=== PATIENT | male | born 1950 | race Caucasian/White ===

== ENCOUNTER → 2018-04-01 10:25 | Outpatient (POV) | payer MEDICARE, OTHER, SELFPAY | PROVIDERS: Visit Provider Dermatology | DX: Z00.00 Encounter for general adult medical examination without abnormal findings (principal) ==

== ENCOUNTER → 2018-11-16 11:27 | Outpatient (POV) | payer MEDICARE, SELFPAY | PROVIDERS: Visit Provider Dermatology | DX: Z00.00 Encounter for general adult medical examination without abnormal findings (principal) ==

== ENCOUNTER → 2021-05-24 07:54 | Outpatient (CLI) | payer MEDICARE, OTHER, SELFPAY ==
--- NOTE | 2021-05-24 08:38 | CT_ITS ---
PROCEDURE INFORMATION: Exam: CTA Angiogram of the Abdominal Aorta and Bilateral Lower Extremities (Run-off) With IV Contrast Exam date and time: 05/24/2021 8:38 AM Age: 70 years old Clinical indication: Condition or disease; Peripheral vascular disease; Additional info: Pad, abnormal casey TECHNIQUE: Imaging protocol: CT angiogram of the abdominal aorta, pelvis and bilateral lower extremities with IV iodinated contrast. 3D rendering (Not supervised by radiologist): MIP and/or 3D reconstructed images were created by the technologist. Radiation optimization: All CT scans at this facility use at least one of these dose optimization techniques: automated exposure control; mA and/or kV adjustment per patient size (includes targeted exams where dose is matched to clinical indication); or iterative reconstruction. Contrast material: ISOVUE 370; Contrast volume: 120 ml; Contrast route: INTRAVENOUS (IV); COMPARISON: No relevant prior exams. FINDINGS: Aorta: No aortic aneurysm or dissection. Celiac trunk and mesenteric arteries: Visualized portions are patent. Renal arteries: The right renal artery is occluded. Flow-limiting stenosis of the left renal artery with the lumen narrowed 50-60%. Right iliac arteries: Marked mural irregularity of the right common iliac artery. There is a stent present which is patent. Non flow-limiting plaque of the right external iliac artery. Right femoral/popliteal arteries: The right common femoral artery is irregular but patent. Marked irregularity of the superficial femoral artery with multiple flow-limiting skip lesions. The distal SFA is occluded. Right infrapopliteal arteries: Marked flow-limiting mural calcification of the right trifurcation vessels. The anterior tibial artery is occluded. Left iliac arteries: Marked mural irregularity of the left common iliac artery. Flow-limiting stenosis in the distal portion with the lumen narrowed by 50-60%. The external iliac artery demonstrates a stenosis in the midportion with the lumen narrowed by 60-70%. Left femoral/popliteal arteries: The left common femoral artery is patent. The proximal and mid left superficial femoral artery is occluded. Reconstitution of the distal SFA which is highly irregular with multiple flow-limiting skip lesions. The popliteal artery is obscured. Left infrapopliteal arteries: Marked mural calcification of the left trifurcation vessels. Liver: No mass. Gallbladder and bile ducts: Unremarkable. No calcified stones. No ductal dilation. Pancreas: Unremarkable. No mass. No ductal dilation. Spleen: Normal. No splenomegaly. Adrenals: Normal. No mass. Kidneys and ureters: 6 cm simple right renal cortical cyst. The right kidney is atrophic as compared to the left. Stomach and bowel: Unremarkable. No obstruction. No mucosal thickening. Appendix: No evidence of appendicitis. Bladder: Unremarkable. No mass. Reproductive: Unremarkable as visualized. Intraperitoneal space: Unremarkable. No free air. No significant fluid collection. Lymph nodes: No lymphadenopathy. Bones/joints: No acute fracture. No dislocation. Soft tissues: Unremarkable. IMPRESSION: 1. Stent in the RIGHT common iliac artery which is patent. 2. Marked irregularity of the RIGHT superficial femoral artery with multiple flow-limiting skip lesions. 3. Occlusion of the distal RIGHT superficial femoral artery with reconstitution of the distal popliteal. 4. Flow-limiting stenosis in the distal LEFT common iliac artery with the lumen narrowed by 50-60%. 5. Flow-limiting stenosis of the LEFT external iliac artery with the lumen narrowed by 60-70%. 6. Long segment
[2021-05-24 09:06] LABS: Blood Urea Nitrogen 11 mg/dl (9-20); Estimated Glomerular Filt Rate 18 ml/min (>60); GFR (African American) 22 ML/MIN (>60)
== END ==
PROVIDERS: Internal Medicine; PCP Emergency Medicine; Visit Provider Nurse Practitioner Family
DX: I10 Essential (primary) hypertension (principal); I48.92 Unspecified atrial flutter; I73.9 Peripheral vascular disease, unspecified; L97.329 Non-pressure chronic ulcer of left ankle with unspecified severity; R00.0 Tachycardia, unspecified; R60.9 Edema, unspecified; R68.89 Other general symptoms and signs; R94.31 Abnormal electrocardiogram [ECG] [EKG]; Z95.828 Presence of other vascular implants and grafts
CPT/HCPCS: 36415; 75635; 82565; 84520; 93306; Q9967

== ENCOUNTER 2021-06-05 09:19 | Day surgery (SDC) | payer MEDICARE, OTHER, SELFPAY ==
[2021-06-05] VITALS (12 sets, daily range): BP systolic 129–174; BP diastolic 48–99; PULSE 67–78; RESP 16–18; TEMP 36.6; O2SAT 96–100; BMI 26.3
--- NOTE | 2021-06-05 | IR_ITS ---
APPROVED REPORT Patient Location: Outpatient Complaint Evaluation Officer: CLAIRE Gaines RT (R) PROCEDURES Left heart catheterization Left ventriculogram Selective coronary angiogram Catheter placed in the abdominal aorta Abdominal aortography Repositioning the catheter abdominal Bilateral iliofemoral INDICATION Systolic congestive heart failure ejection fraction 20%, End-stage dialysis with endorgan disease suspect multivessel coronary disease/ischemic cardiomyopathy, Known peripheral artery disease with history of femoropopliteal surgery, Poorly healing lower extremity ulcers, Wright claudication class V Informed consent was obtained prior to the procedure. COMPLICATIONS NONE Estimated Blood Loss: LESS THAN 10 ML TECHNIQUE One percent lidocaine used to anesthetize the right anterior aspect of the wrist. The right radial artery was accessed via the Seldinger technique. A 6 Greek sheath was placed in the right radial artery. 2.5 mg of verapamil, 800 mcg of nitroglycerin, 1mg Lidocaine and 5000 U Heparin were given through the arterial sheath. The Poppa 1 catheter was also used to perform left heart catheterization, left ventriculogram and selective coronary angiogram. At the end the diagnostic angiogram the PV multi curve catheter was placed into the distal abdominal aorta abdominal aortography was performed. Catheters and reposition bilateral iliofemoral runoff was performed. At the end the procedure the apparatus is moved the sheath was removed and hemostasis was achieved using TR banding patient was transferred to the postop already in stable condition ANGIOGRAPHIC RESULTS The left main artery Normal The left anterior descending artery Normal The circumflex artery Dominant normal The right coronary artery Normal The MEZA ventriculogram reveals Severely dilated and severely reduced ejection fraction of 20% The left ventricular end-diastolic pressure Severely elevated at 40 mmHg Abdominal aorta is calcified moderate to severely atheromatous with no focal stenosis greater than 20% Bilateral common iliac arteries are calcified atheromatous but patent with no stenosis greater than 30% Bilateral external iliac arteries are calcified atheromatous but patent with no stenosis greater than 30% Bilateral common femoral arteries are widely patent Bilateral profunda femoris arteries are patent and supply distal collateralization to the popliteal artery The bilateral superficial femoral arteries are ostially proximally and distally occluded Bilateral popliteal arteries are patent and fills via collaterals from the profunda femoris arteries Right leg has single-vessel runoff below the knee from the anterior tibialis artery where the posterior tibialis artery and peroneal arteries are occluded Left leg has single-vessel runoff from the posterior tibialis artery into the left foot. The anterior tibialis artery and peroneal arteries are both occluded. The left femoropopliteal and pop distal AT is thrombosed and occluded IMPRESSION Normal coronary arteries as described above Severely reduced ejection fraction with severe left ventricular dilatation accompanied by severely elevated LVEDP Peripheral artery disease as described above PLAN 1. Medical managemen for the coronary artery disease 2. Standard therapy for systolic heart failure 3. Consideration for [employer] D/P depending on which patient would be candidate for 4. Patient requires additional diuresis in order to decrease LVEDP 5. Medical management for peripheral artery disease 6. Aggressive risk factor modification Electronically signed by : Alex Rudolph MD 06/05/2021 13:40:32
== END 2021-06-05 16:30 | disposition home health service (06) ==
LOC: CATHLAB 09:21
PROVIDERS: PCP Emergency Medicine; Visit Provider Internal Medicine
DX: I13.2 Hypertensive heart and chronic kidney disease with heart failure and with stage 5 chronic kidney disease, or end stage renal disease (principal); I48.92 Unspecified atrial flutter; I50.21 Acute systolic (congestive) heart failure; I70.243 Atherosclerosis of native arteries of left leg with ulceration of ankle; L97.329 Non-pressure chronic ulcer of left ankle with unspecified severity; N18.6 End stage renal disease; R00.0 Tachycardia, unspecified; R06.00 Dyspnea, unspecified; R60.9 Edema, unspecified; R94.31 Abnormal electrocardiogram [ECG] [EKG]; Z95.828 Presence of other vascular implants and grafts; I25.5 Ischemic cardiomyopathy; I77.1 Stricture of artery
CPT/HCPCS: 36247; 75625; 75716; 93458; 99152; 99153; C1725; C1769; J1644; Q9966

== ENCOUNTER → 2021-07-02 13:27 | Outpatient (POV) | payer MEDICARE, SELFPAY | PROVIDERS: Visit Provider Dermatology | DX: Z00.00 Encounter for general adult medical examination without abnormal findings (principal) ==

== ENCOUNTER 2021-07-31 05:52 | Emergency (ER) | payer MEDICARE, OTHER, SELFPAY ==
[2021-07-31 05:51] VITALS: BP 154/74; PULSE 52; RESP 18; TEMP 36.8; O2SAT 96; BMI 24.7
--- NOTE | 2021-07-31 05:55 | ECG_ITS ---
APPROVED REPORT Exam: Resting ECG HR:50 bpm ECG Measurements Heart Rate 50 AXES OK 174 P 49 QRSd 114 QRS 22 QT 452 T 174 QTc [address] & T wave abnormality, consider inferolateral ischemia Abnormal ECG Electronically signed by : Kobe Hess MD 08/02/2021 14:33:10
--- NOTE | 2021-07-31 06:12 | XR_ITS ---
PROCEDURE INFORMATION: Exam: XR Chest Exam date and time: 07/31/2021 6:12 AM Age: 70 years old Clinical indication: Shortness of breath; Prior surgery; Additional info: SOA TECHNIQUE: Imaging protocol: XR of the chest. Views: 1 view. COMPARISON: CT ANGIO ABDOMEN/FEMORAL 05/24/2021 9:48 AM FINDINGS: Tubes, catheters and devices: Left central line with tip in the SVC/right atrium. Lungs: Possible vague bilateral lower lung infiltrates. Pleural spaces: Unremarkable. No pleural effusion. No pneumothorax. Heart/Mediastinum: Borderline heart size and vascularity. Bones/joints: Unremarkable. IMPRESSION: 1. Left central line. 2. Borderline heart size and vascularity. 3. Possible vague bilateral lower lung infiltrates. The
--- NOTE | 2021-07-31 06:20 | HMH.EDSOB ---
ED Disposition Clinical Impression: ESRD (end stage renal disease) Dyspnea Qualifiers: Dyspnea type: unspecified Qualified Code(s): R06.00 - Dyspnea, unspecified Disposition: Home, Self-Care Condition on Discharge: Good Instructions: DI for Shortness of Breath Additional Instructions: resume meds and dialysis Referrals: Deejay Velazquez MD [Primary Care Provider] - - Critical Care Critical Care Time: No Attestation: On 07/31/21, the high probability of a clinically significant, sudden or life threatening deterioration of the following system(s) required my full and direct attention, intervention and personal management. The time I documented below is in addition to time spent performing reported procedures but includes the following listed in this critical care notation. Medical Decision Making - Medical Records Medical records reviewed: Yes: I reviewed the patient's medical records. - Morgan Inquiry Pt receiving controlled substance: No Vital Signs: 07/31/21 05:51 07/31/21 07:00 07/31/21 07:30 Temperature 98.2 F Temperature Source Oral Pulse Rate 55 L 58 L Pulse Rate [Right Radial] 52 L Respiratory Rate 18 15 12 Blood Pressure 145/67 H 148/61 H Blood Pressure [Right Arm] 154/74 H Blood Pressure Mean 101 95 Blood Pressure Mean [Right Arm] 100 Blood Pressure Source [Right Arm] Automatic Cuff Blood Pressure Position [Right Arm] Supine 02 Sat by Pulse Oximetry 96 100 98 Oxygen Delivery Method Nasal Cannula - Lab Data Lab results reviewed: Yes: I reviewed the patient's lab results. Lab Results 07/31/21 06:00: WBC 5.5, RBC 3.69 L, Hgb 10.0 L, Hct 33.1 L, MCV 89.5, MCH 27.2, MCHC 30.4 L, RDW 18.8 H, Plt Count 173, MPV 9.7, Neut % (Auto) 79.6, Lymph % (Auto) 13.7, Hartley % (Auto) 5.5, Eos % (Auto) 0.6, Baso % (Auto) 0.5, Neut # (Auto) 4.4, Lymph # (Auto) 0.8, Hartley # (Auto) 0.3, Eos # (Auto) 0.0, Baso # (Auto) 0.0 07/31/21 06:00: Sodium 136, Potassium 3.4 L, Chloride 98, Carbon Dioxide 35 H, Anion Gap 6.4, BUN 32 H, Creatinine 3.50 H, Estimated Creat Clear 21, Estimated GFR 17 L*, Est GFR ( Amer) 21 L, Glucose 78, Calcium 7.9 L, Total Bilirubin 0.4, Direct Bilirubin 0.4, Conjugated Bilirubin 0.0, Indirect Bilirubin 0.0, Unconjugated Bilirubin 0.1, AST 33, ALT 21, Alkaline Phosphatase 271 H, Troponin I 0.02, C-Reactive Protein 61.1 H, Total Protein 4.6 L, Albumin 2.4 L, Procalcitonin 1.08 Result diagrams: 07/31/21 06:00 07/31/21 06:00 Orders (Tests/Meds): ED MEDICATIONS Discontinued Medications Generic Name Dose Route Start Last Admin Trade Name Freq PRN Reason Stop Dose Admin Acetaminophen 650 mg 07/31/21 06:45 07/31/21 06:59 Acetaminophen 325mg Tab PO 07/31/21 06:46 650 mg ONCE ONE Administration ORDERS Category Date Time Status Chest XR -- portable [XR chest portable] Stat Exams 07/31/21 06:12 Taken Complete Blood Count Auto Diff Stat Lab 07/31/21 06:00 Results Erythrocyte Sedimentation Rate Stat Lab 07/31/21 06:00 Results Troponin I Q3H Lab 07/31/21 09:15 Ordered Troponin I Q3H Lab 07/31/21 12:15 Ordered - Radiology Data #1 Image(s): Chest Image Reviewed: Yes I reviewed the patient's radiology image Preliminary Findings: Abnormal (has prob chronic changes on rt ) - ECG Data Tracing #1 Arrhythmias present: sinus jericho Ischemic changes: non-specific ST-T wave changes Medical Decision Narrative: remained stable in ed and stable chronic labs - will send back to ed to do dialysis today Resp/SOB HPI - General Chief Complaint: Shortness of Breath/Dyspnea Stated Complaint: soa Time Seen by Provider: 07/31/21 06:05 Mode of Arrival: EMS Source of Information: Patient, EMS, Medical Record Limitations: No Limitations Description of Symptoms (Recalled from ER Triage Doc. by RN): Pt sent over from [place] for c/o SOA. Pt reports waking up at aprox 0430 and feeling SOA. He describes it as fullness in my lungs . Pt is a
[2021-07-31 06:23] LABS: Alanine Aminotransferase 21 U/L (12-78); Albumin Level 2.4 g/dl (3.5-5.0); Alkaline Phosphatase 271 U/L (38-126); Anion Gap 6.4 mEq/L (5-15); Aspartate Amino Transferase 33 U/L (17-59); Basophils % 0.5 % (0.1-2.0); Bilirubin,Direct 0.4 mg/dl (0.0-0.4); Bilirubin,Total 0.4 mg/dl (0.2-1.3); Bilirubin,Unconjugated 0.1 mg/dL (0.0-1.1); Blood Urea Nitrogen 32 mg/dl (9-20); Calcium 7.9 mg/dl (8.4-10.2); Carbon Dioxide 35 mmol/L (22.0-30.0); Chloride 98 mmol/L (98-107); Creatinine Clearance Estimated 21 mL/min (50-200); Eosinophils % 0.6 % (0.1-12.0); Estimated Glomerular Filt Rate 17 ml/min (>60); GFR (African American) 21 ML/MIN (>60); Glucose 78 mg/dl (74-100); Hematocrit 33.1 % (42.0-52.0); Lymphocytes # 0.8 K/mm3 (0.7-4.5); Lymphocytes % 13.7 % (10-50); Mean Corpuscular HGB Conc 30.4 g/dL (31.8-35.4); Mean Corpuscular Hemoglobin 27.2 pg (27.0-31.2); Mean Corpuscular Volume 89.5 fl (80-94); Mean Platelet Volume 9.7 fl (7.4-10.4); Monocytes # 0.3 K/mm3 (0.1-1.0); Monocytes % 5.5 % (1.7-9.3); Neutrophils # 4.4 K/mm3 (1.8-7.8); Neutrophils % 79.6 % (37.0-80.0); Platelet Count 173 K/mm3 (142-424); Potassium 3.4 mmoL/L (3.5-5.1); Red Blood Count 3.69 M/mm3 (4.60-6.20); Red Cell Distribution Width 18.8 % (11.5-17.5); Sodium 136 mmol/L (136-145); Total Protein,Serum 4.6 g/dl (6.3-8.2); White Blood Count 5.5 K/mm3 (4.8-10.8)
[2021-07-31 06:29] LABS: C-Reactive Protein 61.1 mg/L (0-4)
[2021-07-31 06:37] LABS: Troponin I 0.02 ng/ml (0.00-0.034)
[2021-07-31 06:42] LABS: Procalcitonin 1.08 ng/mL (0.0-2.0)
[2021-07-31 07:00] VITALS: BP 145/67; PULSE 55; RESP 15; O2SAT 100
[2021-07-31 07:30] VITALS: BP 148/61; PULSE 58; RESP 12; O2SAT 98
--- NOTE | 2021-07-31 08:09 | PC.NURSE ---
Called and spoke with Hernandez and advised pt was ready for discharge so he could go to dialysis. Advised someone would be up to get patient.
[2021-07-31 08:10] VITALS: BP 142/60; PULSE 50; RESP 16; TEMP 36.8; O2SAT 98
[2021-07-31 08:15] LABS: Erythrocyte Sedimentation Rate 19 mm/hr (0-20)
== END 2021-07-31 08:15 | disposition home or self-care (01) ==
PROVIDERS: Emergency Provider Emergency Medicine; PCP Emergency Medicine
DX: I50.20 Unspecified systolic (congestive) heart failure (principal); N18.6 End stage renal disease; I48.0 Paroxysmal atrial fibrillation; I10 Essential (primary) hypertension; E78.5 Hyperlipidemia, unspecified; Z99.81 Dependence on supplemental oxygen; Z79.899 Other long term (current) drug therapy
CPT/HCPCS: 71045; 80048; 80076; 84145; 84484; 85025; 85651; 86140; 93005; 99284

== ENCOUNTER 2021-09-01 15:15 | Observation (INO) | payer MEDICARE, OTHER, SELFPAY ==
[2021-09-01] VITALS (15 sets, daily range): BP systolic 71–132; BP diastolic 40–81; PULSE 53–78; RESP 11–20; TEMP 36.7–36.9; O2SAT 81–99; BMI 22.4; BMI 22.3
--- NOTE | 2021-09-01 15:10 | ECG_ITS ---
APPROVED REPORT Exam: Resting ECG HR:114 bpm ECG Measurements Heart Rate 114 AXES QRSd 43 QRS 219 QT 302 T 214 QTc 370 Conclusion SUPRAVENTRICULAR TACHYCARDIA RIGHT AXIS DEVIATION [QRS AXIS > 100] LOW QRS VOLTAGE IN EXTREMITY LEADS [QRS DEFLECTION < 0.5 mV IN LIMB LEADS] POSSIBLE ANTERIOR MYOCARDIAL INFARCTION , OF INDETERMINATE AGE [30 ms Q WAVE IN V3/V4, OR R < 0.2 mV IN V4] MARKED ST ELEVATION, CONSIDER INFERIOR INJURY [MARKED ST ELEVATION W/O NORMALLY INFLECTED T-WAVE IN II/aVF] ACUTE ME UNCONFIRMED REPORT Electronically signed by : Kobe Hess MD 09/02/2021 20:35:57
--- NOTE | 2021-09-01 15:16 | HMH.EDGENADL ---
ED Disposition Clinical Impression: COVID-19 virus infection, Hypokalemia, Hypoglycemia Pneumonia Qualifiers: Pneumonia type: due to unspecified organism Laterality: bilateral Lung location: lower lobe of lung Qualified Code(s): J18.9 - Pneumonia, unspecified organism Sepsis Qualifiers: Sepsis type: sepsis due to unspecified organism Sepsis acute organ dysfunction status: without acute organ dysfunction Qualified Code(s): A41.9 - Sepsis, unspecified organism Disposition: Admitted as Observation Condition on Discharge: [facility] - Critical Care Critical Care Time: No Attestation: On , the high probability of a clinically significant, sudden or life threatening deterioration of the following system(s) required my full and direct attention, intervention and personal management. The time I documented below is in addition to time spent performing reported procedures but includes the following listed in this critical care notation. Medical Decision Making - Morgan Inquiry Pt receiving controlled substance: No Vital Signs: 09/01/21 15:16 09/01/21 16:03 09/01/21 16:04 Temperature 98.4 F Temperature Source Oral Pulse Rate Pulse Rate [Left Radial] 64 Respiratory Rate 20 20 20 Blood Pressure 71/46 L 76/43 L Blood Pressure [Right Arm] 132/45 L Blood Pressure Mean Blood Pressure Mean [Right Arm] 74 02 Sat by Pulse Oximetry 95 Oxygen Delivery Method Nasal Cannula Oxygen Flow Rate (LPM) 6 09/01/21 16:11 09/01/21 16:12 09/01/21 16:18 Temperature Temperature Source Pulse Rate 78 56 L 57 L Pulse Rate [Left Radial] Respiratory Rate 15 20 15 Blood Pressure 80/40 L 78/48 L 79/52 L Blood Pressure [Right Arm] Blood Pressure Mean Blood Pressure Mean [Right Arm] 02 Sat by Pulse Oximetry 86 L 90 L 98 Oxygen Delivery Method Oxygen Flow Rate (LPM) 09/01/21 16:22 09/01/21 16:27 09/01/21 16:31 Temperature Temperature Source Pulse Rate 53 L 59 L 57 L Pulse Rate [Left Radial] Respiratory Rate 15 15 11 L Blood Pressure 110/81 103/62 L 112/50 L Blood Pressure [Right Arm] Blood Pressure Mean Blood Pressure Mean [Right Arm] 02 Sat by Pulse Oximetry 87 L 81 L 86 L Oxygen Delivery Method Oxygen Flow Rate (LPM) 09/01/21 17:22 09/01/21 17:30 09/01/21 18:00 Temperature Temperature Source Pulse Rate 61 73 60 Pulse Rate [Left Radial] Respiratory Rate 12 13 20 Blood Pressure 85/55 L 104/46 L 100/47 L Blood Pressure [Right Arm] Blood Pressure Mean 61 52 64 Blood Pressure Mean [Right Arm] 02 Sat by Pulse Oximetry 98 98 99 Oxygen Delivery Method Nasal Cannula Nasal Cannula Nasal Cannula Oxygen Flow Rate (LPM) 2 2 2 09/01/21 18:46 Temperature Temperature Source Pulse Rate 61 Pulse Rate [Left Radial] Respiratory Rate 18 Blood Pressure 86/65 L Blood Pressure [Right Arm] Blood Pressure Mean 69 Blood Pressure Mean [Right Arm] 02 Sat by Pulse Oximetry 98 Oxygen Delivery Method Nasal Cannula Oxygen Flow Rate (LPM) 2 - Lab Data Lab Results 09/01/21 15:26: ABG pH 7.54 H, ABG pCO2 27.5 L, ABG pO2 170.0 H, ABG HCO3 22.8, ABG Total CO2 23.7, ABG O2 Saturation 99, ABG Base Excess 0.2 09/01/21 15:30: WBC 10.1, RBC 3.76 L, Hgb 11.0 L, Hct 36.9 L, MCV 98.1 H, MCH 29.3, MCHC 29.8 L, RDW 20.5 H, Plt Count 182, MPV 9.5, Neut % (Auto) 89.8 H, Lymph % (Auto) 7.2 L, Pratt % (Auto) 2.4, Eos % (Auto) 0.4, Baso % (Auto) 0.2, Neut # (Auto) 9.1 H, Lymph # (Auto) 0.7, Pratt # (Auto) 0.2, Eos # (Auto) 0.0, Baso # (Auto) 0.0, Total Counted 100, Neutrophils % (Manual) 89 H, Band Neutrophils % 2.0, Lymphocytes % (Manual) 5 L, Monocytes % (Manual) 4, Platelet Estimate Normal, RBC Morphology Not Reportable 09/01/21 15:30: Sodium 131 L, Potassium 2.8 L*, Chloride 93 L, Carbon Dioxide 30, Anion Gap 10.8, BUN 49 H, Creatinine 5.20 H, Estimated Creat Clear 14, Estimated GFR 11 L*, Est GFR ( Amer) 13 L*, Glucose 69 L, Calcium 7.8 L, Total Bilirubin 0.3, AST 102
--- NOTE | 2021-09-01 15:26 | XR_ITS ---
PROCEDURE INFORMATION: Exam: XR Chest Exam date and time: 09/01/2021 3:26 PM Age: 70 years old Clinical indication: Shortness of breath; Additional info: Hypoxia TECHNIQUE: Imaging protocol: XR of the chest. Views: 1 view. COMPARISON: CR XR CHEST PORTABLE 07/31/2021 6:06 AM FINDINGS: Lungs: Atelectasis and/or early infiltrative changes noted within both lung bases, greater on the left. Pleural spaces: Unremarkable. No pleural effusion. No pneumothorax. Heart/Mediastinum: Heart demonstrates mild diffuse enlargement. Bones/joints: Chronic changes of the right upper ribs. The thoracic spine demonstrates mild degenerative changes at multiple levels. IMPRESSION: 1. Mild cardiomegaly. 2. Atelectasis and/or early infiltrative changes noted within both lung bases, greater on the left.
[2021-09-01 15:40] LABS: Basophils % 0.2 % (0.1-2.0); Eosinophils % 0.4 % (0.1-12.0); Hematocrit 36.9 % (42.0-52.0); Lymphocytes # 0.7 K/mm3 (0.7-4.5); Lymphocytes % 7.2 % (10-50); Mean Corpuscular HGB Conc 29.8 g/dL (31.8-35.4); Mean Corpuscular Hemoglobin 29.3 pg (27.0-31.2); Mean Corpuscular Volume 98.1 fl (80-94); Mean Platelet Volume 9.5 fl (7.4-10.4); Monocytes # 0.2 K/mm3 (0.1-1.0); Monocytes % 2.4 % (1.7-9.3); Neutrophils # 9.1 K/mm3 (1.8-7.8); Neutrophils % 89.8 % (37.0-80.0); Platelet Count 182 K/mm3 (142-424); Red Blood Count 3.76 M/mm3 (4.60-6.20); Red Cell Distribution Width 20.5 % (11.5-17.5); White Blood Count 10.1 K/mm3 (4.8-10.8)
[2021-09-01 15:42] LABS: MANUAL DIFFERENTIAL MANUAL DIFFERENTIAL (MANUAL DIFF)
[2021-09-01 15:43] LABS: Chloride 93 mmol/L (98-107); Sodium 131 mmol/L (136-145)
[2021-09-01 15:44] LABS: ABG Base Excess 0.2 mmol/L (-2.4-2.3); ABG HCO3 22.8 mmhg (22.0-26.0); ABG Oxygen Saturation 99 % (90-100); ABG PCO2 27.5 mmhg (35.0-45.0); ABG PH 7.54 mmol/L (7.35-7.45); ABG TCO2 23.7 mmhg (23-27)
[2021-09-01 15:46] LABS: Alanine Aminotransferase 39 U/L (12-78); Albumin Level 2.4 g/dl (3.5-5.0); Alkaline Phosphatase 335 U/L (38-126); Anion Gap 10.8 mEq/L (5-15); Aspartate Amino Transferase 102 U/L (17-59); Bilirubin,Total 0.3 mg/dl (0.2-1.3); Blood Urea Nitrogen 49 mg/dl (9-20); Carbon Dioxide 30 mmol/L (22.0-30.0); Estimated Glomerular Filt Rate 11 ml/min (>60); GFR (African American) 13 ML/MIN (>60); Globulin 2.3 g/dL (1.3-3.2); Total Protein,Serum 4.7 g/dl (6.3-8.2)
[2021-09-01 15:47] LABS: Calcium 7.8 mg/dl (8.4-10.2); Glucose 69 mg/dl (74-100)
[2021-09-01 15:51] LABS: Creatinine Clearance Estimated 14 mL/min (50-200)
[2021-09-01 15:53] LABS: Potassium 2.8 mmoL/L (3.5-5.1)
[2021-09-01 15:58] LABS: Troponin I 0.06 ng/ml (0.00-0.034)
[2021-09-01 16:00] LABS: Influenza A, PCR Not Detected (NotDetected); Influenza B, PCR Not Detected (NotDetected)
[2021-09-01 16:22] LABS: Lymphocytes % 5 % (10-50); Monocytes % 4 % (2-9); Neutrophils % 89 % (42-76); Platelet Estimate Normal; Total Cells Counted 100
[2021-09-01 17:08] LABS: Coronavirus 19, PCR Detected (NotDetected)
--- NOTE | 2021-09-01 17:25 | PC.NURSE ---
called placed to [facility] about transfer, placed on hold for [facility] doc.
--- NOTE | 2021-09-01 17:30 | PC.NURSE ---
Called and spoke with Sultana at [facility], pt goes to [facility] in [place] for his treatment.
[2021-09-01 17:35] LABS: POC Glucose,Bedside 123 (70-110)
--- NOTE | 2021-09-01 17:39 | PC.NURSE ---
Dr. Barth with [facility] picked up the call and spoke with Dr. Ochoa, stated there were not any beds available and wait list is 3-7 days. Will try other facilities at this time.
--- NOTE | 2021-09-01 17:42 | PC.NURSE ---
Called and spoke with [facility] about transfer to their facility, stated that if looking for ICU bed, they do not have any, wait list is really long. MD notified and stated to try another facility.
--- NOTE | 2021-09-01 17:46 | PC.NURSE ---
Called [facility] for possible transfer to their facility for ICU bed. Stated that they currently have a long wait list for an ICU bed. Dr. Ochoa notified and wanted another facility tried at this time.
--- NOTE | 2021-09-01 17:49 | PC.NURSE ---
Call placed with [facility] for possible transfer to their ICU bed. Stated that they currently don't have any ICU beds available; have a long wait list. Dr. Ochoa notified and wanted another facility called.
--- NOTE | 2021-09-01 17:51 | PC.NURSE ---
Placed a call to [facility] about possible transfer to their facility for ICU bed. Spoke with someone in the call center and they took all patient information and stated that they were going to look at bed status and call me back with an answer. Still awaiting call. Dr. Ochoa notified.
--- NOTE | 2021-09-01 18:05 | PC.NURSE ---
Dr Ochoa speaking with Dr Hernandez
--- NOTE | 2021-09-01 18:18 | PC.NURSE ---
Still awaiting call back from [facility] transfer center. Placed call to [facility]; sent me to warehouse supervisor 3rd shift; left message with warehouse supervisor 3rd shift to return my call. Dr. Ochoa notified.
--- NOTE | 2021-09-01 18:22 | PC.NURSE ---
Transfer center called back at this time stating that they are unable to accommodate the patient tonight due to no beds in their facility for ICU transfer. Dr. Ochoa notified at this time.
--- NOTE | 2021-09-01 18:31 | PC.NURSE ---
Called [facility] again at this time, finally got through and spoke with Serene, she stated that she does not have any ICU beds available at this time. Dr. Ochoa notified at this time.
--- NOTE | 2021-09-01 18:34 | PC.NURSE ---
Call placed to [facility] transfer center for possible transfer. Awaiting on hold for someone to let me know their bed status
--- NOTE | 2021-09-01 18:39 | PC.NURSE ---
Someone from [facility] answered the call and stated that they didn't have any ICU beds at this time. Dr. Ochoa notified at this time. Wanted me to try [facility]. Call will be placed at this time.
--- NOTE | 2021-09-01 18:40 | PC.NURSE ---
Placed a call to [facility] about getting patient transferred to their facility. Spoke with someone and they stated that they didn't have any ICU beds at this time.
--- NOTE | 2021-09-01 18:42 | PC.NURSE ---
Dr. Ochoa wanted to speak with Dr. Hernandez. Call placed at this time. Awaiting callback
--- NOTE | 2021-09-01 18:43 | PC.NURSE ---
Dr. Hernandez called back at this time and speaking with Dr. Ochoa.
[2021-09-01 18:51] LABS: Troponin I 0.06 ng/ml (0.00-0.034)
--- NOTE | 2021-09-01 20:49 | PC.NURSE ---
patient up to floor via stretcher @ this time.
[2021-09-01 22:10] LABS: Troponin I 0.07 ng/ml (0.00-0.034)
[2021-09-02] VITALS: BP 106/64; PULSE 69; RESP 18; TEMP 36.9; O2SAT 97
--- NOTE | 2021-09-02 02:17 | PC.WOUNDNOTE ---
skin tear to right arm/elbow right foot blister vs pressure area unstageable ulcer to right heel ulceration to left lower leg/ankle bottom/side of left foot - unstageable skin tear left elbow coccyx/buttocks left foot - scabbed area on 3rd toe. bruise/abrasion vs pressure area on great toe open and irritated area to coccyx/buttocks
[2021-09-02 04:00] VITALS: BP 141/76; PULSE 84; RESP 18; TEMP 37.7; O2SAT 90
--- NOTE | 2021-09-02 05:39 | PC.NURSE ---
Addendum entered by Aidee Rodriguez RN 09/02/21 06:54: Pt is in need of dialysis, but no facilities with dialysis had open beds. Pt normally gets dialysis in [facility]. Pts brief upon admission was a little wet but not saturated. No other voids this shift. Original Note: Pt alert and oriented x3, with periods of confusion. According to [facility] staff that is pts baseline. Pt is on 2 L NC, maintaining O2 sat > 90. Pt is on 2 L NC at custodial. Pt is on tele, but lots of artifact noted d/t pt tremors. Pt is total care, incontinent, [id number]. Pt has multiple skin issues - see nursing wound note. Called [facility] for clarification on home meds, new MAR faxed. Med Rec complete. Pt is a left limb alert d/t fistula. Bruit auscultated and thrill felt. IV ATBX administered as ordered. No acute episodes during my shift. Call light in reach.
--- NOTE | 2021-09-02 07:41 | HMH.PHAVTE ---
[facility] Pharm[facility] VTE Monitoring - Patient Demographics Admission date: 09/02/21 Report Date: 09/02/21 Time: 07:41 Allergies/Adverse Reactions: Patient Allergies codeine Adverse Reaction (Verified 05/30/21 13:34) Height: 1.73 m Weight: 66.877 kg Patient Problems: Current Active Problems Pneumonia (Acute) Sepsis (Acute) COVID-19 virus infection (Acute) Hypokalemia (Acute) Hypoglycemia (Acute) - VTE Risk Labs: VTE Related Lab Results Hgb 11.0 g/dL (14.1-18.0) L 09/01/21 15:30 Hct 36.9 % (42.0-52.0) L 09/01/21 15:30 Plt Count 182 K/mm3 (142-424) 09/01/21 15:30 BUN 49 mg/dl (9-20) H 09/01/21 15:30 Creatinine 5.20 mg/dl (0.66-1.25) H 09/01/21 15:30 Estimated Creat Clear 14 mL/min (50-200) 09/01/21 15:30 Was VTE Risk Assessment Performed: Yes VTE Score: 9 VTE Risk Level: Moderate Risk Clinical Trial Participant: No - Prophylaxis VTE Prophylaxis Ordered?: Yes Types of VTE Prophylaxis: TEDS Knee High
--- NOTE | 2021-09-02 07:56 | HMH.PHAINT ---
verified home medication list using list from halfway
[2021-09-02 08:00] VITALS: BP 116/56; PULSE 77; RESP 18; RESP 19; TEMP 36.7; O2SAT 94; O2SAT 95
[2021-09-02 08:44] LABS: Chloride 94 mmol/L (98-107); Sodium 131 mmol/L (136-145)
[2021-09-02 08:45] LABS: Potassium 3.1 mmoL/L (3.5-5.1)
[2021-09-02 08:47] LABS: Blood Urea Nitrogen 56 mg/dl (9-20); Creatinine Clearance Estimated 12 mL/min (50-200); Estimated Glomerular Filt Rate 10 ml/min (>60); GFR (African American) 12 ML/MIN (>60)
[2021-09-02 08:48] LABS: Anion Gap 14.1 mEq/L (5-15); Calcium 7.1 mg/dl (8.4-10.2); Carbon Dioxide 26 mmol/L (22.0-30.0); Glucose 52 mg/dl (74-100)
[2021-09-02 08:49] LABS: Basophils % 0.3 % (0.1-2.0); Eosinophils % 0.4 % (0.1-12.0); Hematocrit 34.2 % (42.0-52.0); Hemoglobin 10.3 g/dL (14.1-18.0); Lymphocytes # 0.5 K/mm3 (0.7-4.5); Lymphocytes % 5.3 % (10-50); Mean Corpuscular HGB Conc 30.2 g/dL (31.8-35.4); Mean Platelet Volume 8.9 fl (7.4-10.4); Monocytes # 0.3 K/mm3 (0.1-1.0); Monocytes % 3.3 % (1.7-9.3); Neutrophils % 90.8 % (37.0-80.0); Platelet Count 179 K/mm3 (142-424); Red Blood Count 3.56 M/mm3 (4.60-6.20); Red Cell Distribution Width 20.4 % (11.5-17.5); White Blood Count 8.9 K/mm3 (4.8-10.8)
[2021-09-02 08:54] LABS: MANUAL DIFFERENTIAL MANUAL DIFFERENTIAL (MANUAL DIFF)
--- NOTE | 2021-09-02 08:55 | SW/DCPLANNER ---
This patient currently resides at [facility]. I spoke with Serene from [place] and she has stated that patient is ICF level of care. The plan for this patient is to return to [facility] today.
--- NOTE | 2021-09-02 09:06 | HMH.PHACONS ---
- Pharmacy Consult Date: 09/02/21 Time: 09:06 Referring provider: DR GRAF Reason for Consult:: VANCOMYCIN DOSING CONSULT Allergies and ADEs:: Allergies Allergy/AdvReac Type Severity Reaction Status Date / Time codeine AdvReac Verified 05/30/21 13:34 Home Medications:: Home Medications Medication Instructions Recorded Confirmed Type acetaminophen 500 mg tablet 500 mg PO Q4HP PRN 05/23/21 09/02/21 History albuterol sulfate 90 mcg/actuation 2 puff INHALATION Q4-6H PRN 05/23/21 09/02/21 History aerosol inhaler atorvastatin 80 mg tablet 80 mg PO DAILY 05/23/21 09/02/21 History bupropion HCl 75 mg tablet 75 mg PO BID 05/23/21 09/02/21 History coenzyme Q10 100 mg capsule 100 mg PO DAILY 05/23/21 09/02/21 History cyanocobalamin (vitamin B-12) 500 500 mcg PO DAILY 05/23/21 09/02/21 History mcg tablet hydroxyzine HCl 25 mg tablet 25 mg PO HS 05/23/21 09/02/21 History ipratropium 0.5 mg-albuterol 3 mg 3 ml INHALATION Q4H PRN 05/23/21 09/02/21 History (2.5 mg base)/3 mL nebulization soln isosorbide dinitrate 30 mg tablet 30 mg PO BID 05/23/21 09/02/21 History leflunomide 20 mg tablet 20 mg PO DAILY 05/23/21 09/02/21 History magnesium oxide 400 mg (241.3 mg 200 mg PO DAILY 05/23/21 09/02/21 History magnesium) tablet ondansetron HCl 4 mg tablet 4 mg PO Q8H PRN 05/23/21 09/02/21 History prednisone 10 mg tablet 10 mg PO DAILY 05/23/21 09/02/21 History sennosides 8.6 mg tablet 2 tab PO BID PRN 05/23/21 09/02/21 History umeclidinium 62.5 mcg/actuation 1 inh INHALATION DAILY 05/23/21 09/02/21 History blister powder for inhalation Amiodarone HCl 100 mg PO DAILY 06/05/21 09/02/21 History oxycodone 10 mg tablet 10 mg PO BID #60 tab 08/15/21 09/02/21 Rx Gabapentin [Gabapentin 100mg Cap] 100 mg PO BID 09/01/21 09/02/21 History Apixaban [Eliquis 2.5mg tab] 2.5 mg PO BID 09/02/21 09/02/21 History Ascorbic Acid [Vitamin C 500mg 500 mg PO DAILY 09/02/21 09/02/21 History tablet] B Complex W-C No.20/Folic Acid 1 mg PO DAILY 09/02/21 09/02/21 History [Renal Caps Softgel] Cholecalciferol (Vitamin D3) 125 mcg PO DAILY 09/02/21 09/02/21 History [Vitamin D3] Isosorbide Mononitrate [Isosorbide 60 mg PO HS 09/02/21 09/02/21 History Mononitrate ER] L. Acidophilus/L.bulgaricus 1 each PO DAILY 09/02/21 09/02/21 History [Floranex Tablet] Metoprolol Tartrate [Lopressor 100 100 mg PO HS 09/02/21 09/02/21 History mg Tablets] cephALEXin [cephALEXin 500mg 500 mg PO HS 09/02/21 09/02/21 History capsule*] Height: 1.73 m Weight: 66.877 kg Laboratory Results:: Laboratory Results - last 24 hr 09/01/21 15:26: ABG pH 7.54 H, ABG pCO2 27.5 L, ABG pO2 170.0 H, ABG HCO3 22.8, ABG Total CO2 23.7, ABG O2 Saturation 99, ABG Base Excess 0.2 09/01/21 15:30: WBC 10.1, RBC 3.76 L, Hgb 11.0 L, Hct 36.9 L, MCV 98.1 H, MCH 29.3, MCHC 29.8 L, RDW 20.5 H, Plt Count 182, MPV 9.5, Neut % (Auto) 89.8 H, Lymph % (Auto) 7.2 L, [place] % (Auto) 2.4, Eos % (Auto) 0.4, Baso % (Auto) 0.2, Neut # (Auto) 9.1 H, Lymph # (Auto) 0.7, [place] # (Auto) 0.2, Eos # (Auto) 0.0, Baso # (Auto) 0.0, Total Counted 100, Neutrophils % (Manual) 89 H, Band Neutrophils % 2.0, Lymphocytes % (Manual) 5 L, Monocytes % (Manual) 4, Platelet Estimate Normal, RBC Morphology Not Reportable 09/01/21 15:30: Sodium 131 L, Potassium 2.8 L*, Chloride 93 L, Carbon Dioxide 30, Anion Gap 10.8, BUN 49 H, Creatinine 5.20 H, Estimated Creat Clear 14, Estimated GFR 11 L*, Est GFR ( Amer) 13 L*, Glucose 69 L, Calcium 7.8 L, Total Bilirubin 0.3, AST 102 H, ALT 39, Alkaline Phosphatase 335 H, Troponin I 0.06 H, Total Protein 4.7 L, Albumin 2.4 L, Globulin 2.3, Albumin/Globulin Ratio 1.0 L 09/01/21 15:30: Lactate 2.0 09/01/21 15:54: SARS-CoV-2 (PCR) Detected A, Influenza A Untype (PCR) Not detected, Influenza Type B (PCR) Not detected 09/01/21 17:28: POC Glucose 123 H 09/01/21 18:30: Troponin I 0.06 H 09/01/21 21:40: Troponin I 0.07 H 09/02/21 08:30: WBC 8.9, RBC 3.56 L, Hgb 10.3 L, Hct
[2021-09-02 09:32] LABS: Lymphocytes % 6 % (10-50); Monocytes % 1 % (2-9); Neutrophils % 93 % (42-76); Total Cells Counted 100
[2021-09-02 09:33] LABS: Platelet Estimate Normal; RBC Morphology Normal
--- NOTE | 2021-09-02 09:52 | HMH.HPDC ---
General - General Admission date:: 09/01/21 Discharge date: 09/02/21 *Admission Date: 09/02/21 *Chief complaint: soa *History of present illness: 70 yr old male brought in by ambulance from [facility] for low oxygen saturation. Saturation reported to be 86% on 6 L. Patient denies shortness of breath. States that he feels tired. Denies any pain. Denies any other complaints at this time. Normally on 2L NC chronically. Staff at skilled nursing reported that they performed a rapid COVID test and it was positive.He is a hemodialysis patient and is reportedly scheduled for dialysis tomorrow in [facility]. Patient was admitted for pulm consult, seen by cardiology. [facility] History I have reviewed the patient's past medical history: Yes Medical History: Reports:: Atrial Fibrillation, Cancer (skin), Depression, Hyperlipidemia, Hypertension, Peripheral Vascular Disease Denies:: Diabetes Mellitus Type 1, Diabetes Mellitus Type 2, Internal Pacemaker, MRSA, Seizures *Have you ever received a pneumonia vaccine?: Yes *Have you received a flu vaccine this season?: Yes Other Medical History: Reports: Arthritis, Cataracts Laterality Cases: Left: Total Knee Replacement, Bilateral: Carpal Tunnel Release, Cataract Other Surgeries: Yes: Cardiac Catheterization. No: Pacemaker Amputation: No Fractures: No - *Social History Smoking Status: Former smoker Alcohol Intake: never *Occupational Status:: disabled Housing: assisted living facility Household Members: other *Travel in the last 8 weeks: None - Psychiatric History Pschychiatric History:: Reports:: Depression Family Hx:: Hypertension, Stroke, Diabetes Review of Systems - Review of Systems Review of systems:: pertinent systems reviewed and negative unless documented below - Constitutional Denies body ache(s), Denies fatigue - Eyes Denies blurry vision - ENT Denies abnormal hearing - *Cardiovascular Denies chest pain at rest - *Respiratory Reports other, Denies shortness of breath, Denies shortness of breath with activity - *Gastrointestinal Denies abdominal pain - *Genitourinary Denies urinary hesitancy - *Musculoskeletal Reports abnormal walking - Integumentary/Breasts Reports skin ulcer, Denies rash - *Neurologic Reports abnormal walking - Psychiatric Denies abnormal sleep pattern - Endocrine Denies excessive sweating - Hematologic/Lymphatic Denies easy bruising - Allergic/Immunologic Denies itchy eyes Exam Vital signs and Labs for Last 24 Hours: Temp Pulse Resp BP Pulse Ox 98.1 F 77 18 116/56 L 95 09/02/21 08:00 09/02/21 08:00 09/02/21 08:00 09/02/21 08:00 09/02/21 08:00 Laboratory Results - last 24 hr 09/01/21 15:26: ABG pH 7.54 H, ABG pCO2 27.5 L, ABG pO2 170.0 H, ABG HCO3 22.8, ABG Total CO2 23.7, ABG O2 Saturation 99, ABG Base Excess 0.2 09/01/21 15:30: WBC 10.1, RBC 3.76 L, Hgb 11.0 L, Hct 36.9 L, MCV 98.1 H, MCH 29.3, MCHC 29.8 L, RDW 20.5 H, Plt Count 182, MPV 9.5, Neut % (Auto) 89.8 H, Lymph % (Auto) 7.2 L, [place] % (Auto) 2.4, Eos % (Auto) 0.4, Baso % (Auto) 0.2, Neut # (Auto) 9.1 H, Lymph # (Auto) 0.7, [place] # (Auto) 0.2, Eos # (Auto) 0.0, Baso # (Auto) 0.0, Total Counted 100, Neutrophils % (Manual) 89 H, Band Neutrophils % 2.0, Lymphocytes % (Manual) 5 L, Monocytes % (Manual) 4, Platelet Estimate Normal, RBC Morphology Not Reportable 09/01/21 15:30: Sodium 131 L, Potassium 2.8 L*, Chloride 93 L, Carbon Dioxide 30, Anion Gap 10.8, BUN 49 H, Creatinine 5.20 H, Estimated Creat Clear 14, Estimated GFR 11 L*, Est GFR ( Amer) 13 L*, Glucose 69 L, Calcium 7.8 L, Total Bilirubin 0.3, AST 102 H, ALT 39, Alkaline Phosphatase 335 H, Troponin I 0.06 H, Total Protein 4.7 L, Albumin 2.4 L, Globulin 2.3, Albumin/Globulin Ratio 1.0 L 09/01/21 15:30: Lactate 2.0 09/01/21 15:54: SARS-CoV-2 (PCR) Detected A, Influenza A Untype (PCR) Not detected, Influenza Type B (PCR) Not detected 09/01/21 17:28: POC Glucose 123 H 09/01/21 18:30:
--- NOTE | 2021-09-02 09:56 | HMH.PTEV ---
Physical Therapy Evaluation Rehab PT IP Evaluation Start: 09/02/21 09:14 Freq: ONCE Status: Active Protocol: Document 09/02/21 09:52 PHORSIMIN (Rec: 09/02/21 09:55 PHORNE [id number]) Subjective/History History History 70 yowm adm to [facility] from [facility] with COVID-19. He uses w/ c for all mobility prior to adm. Subjective Subjective Pt very hard of hearing and has difficulty following commands at baseline. Rehab PT IP Eval Objective Appearance Patient Behavior Appropriate,Confused,Patient Baseline Difficulty following instructions moderate Speech Pattern Clear,Patient Baseline Ambulation Patient Able to Ambulate No Balance Ability to Arise Able, uses arms to help Sitting Balance Leans or slides in chair Standing Balance Unsteady Dynamic Sitting Balance Ability Poor Dynamic Standing Balance Ability Zero Transfers Bed Transfer Ability Maximum x 1 (75% assist) Chair Transfer Ability Maximum x 1 (75% assist) Sit to Stand Bed Transfer Ability Maximum x 1 (75% assist) Sit to Stand Chair Transfer Ability Maximum x 1 (75% assist) Rehab PT IP prob,goals,plan Problems Date of Evaluation: 09/02/21 PT IP Problems Bed Mobility,Transfers Rehab Potential Rehab Potential Fair Plan PT Intervention Plan Bed Mobility,Transfers, Therapeutic Exercise PT Plan Frequency BID Duration LOS Discharge Goals Bed Transfer Ability Moderate x 2 (50% assist) Sit to Stand Chair Transfer Ability Maximum x 1 (75% assist) Discharge Plan PT Discharge Plan Pt is most appropriate to return to [facility] once medically stable. Unsure of his baseline for all mobility, but he appears to be at least close to his baseline transfer ability. G -code Required No Eval Complexity Eval Charge Codes 06928 - High Complexity PHYSICIAN CERTIFICATION: I certify the specified therapy services for [place] are required, authorized, and reviewed every 30 days.
--- NOTE | 2021-09-02 10:04 | PC.NURSE ---
Estella SAMANIEGO APRN MADE AWARE OF PRELIMINARY BLOOD CULTURE RESULTS AND CRITICAL CREATININE THIS A.M DURING ROUNDS
--- NOTE | 2021-09-02 10:26 | HMH.OTEV ---
OT Inpatient Evaluation Rehab OT IP Evaluation Start: 09/02/21 09:14 Freq: ONCE Status: Complete Protocol: Document 09/02/21 10:17 [facility] (Rec: 09/02/21 10:26 [facility] [id number]) Rehab OT IP Assessment Subjective History Pt oriented x1 on arrival. Pt very CRAIG. Pt was admitted via ED on 09/01/21 due to SOB and positive for COVID-19. The following information was copied from history and physical report: 70 yr old male brought in by ambulance from [facility] for low oxygen saturation. Saturation reported to be 86% on 6 L. Patient denies shortness of breath. States that he feels tired. Denies any pain. Denies any other complaints at this time. Normally on 2L NC chronically. Staff at [facility] reported that they performed a rapid COVID test and it was positive.He is a hemodialysis patient and is reportedly scheduled for dialysis tomorrow in [facility]. Patient was admitted for pulm consult, seen by cardiology Pt has a past medical history of Atrial Fibrillation, Cancer (skin), Depression, Hyperlipidemia, Hypertension, Peripheral Vascular Disease Pt lived at [facility] prior to admission. Pt required assistance with all ADLS. Pt was dependent upon staff for completion of IADLs. Pt used a wheelchair at all times for functional mobility. Subjective Pt required max assist x 2 to go from supine to sitting at eob. Pt required max assist x 1 to maintain static sitting balance. Pt required max assist x 2 to go from sitting to supine in bed. Objective Patient Orientati
[2021-09-02 12:00] VITALS: BP 146/44; PULSE 75; RESP 18; TEMP 36.6; O2SAT 92
--- NOTE | 2021-09-02 12:00 | HMH.CNCARD ---
History of Present Illness Consult date: 09/02/21 Requesting physician: Deejay Velazquez Chief complaint: Elevated troponin, ESRD Additional Medical History:: 1. CAD/PAD A. left heart catheterization and lower extremity runoff, 05/2021 ANGIOGRAPHIC RESULTS The left main artery Normal The left anterior descending artery Normal The circumflex artery Dominant normal The right coronary artery Normal The MEZA ventriculogram reveals Severely dilated and severely reduced ejection fraction of 20% The left ventricular end-diastolic pressure Severely elevated at 40 mmHg Abdominal aorta is calcified moderate to severely atheromatous with no focal stenosis greater than 20% Bilateral common iliac arteries are calcified atheromatous but patent with no stenosis greater than 30% Bilateral external iliac arteries are calcified atheromatous but patent with no stenosis greater than 30% Bilateral common femoral arteries are widely patent Bilateral profunda femoris arteries are patent and supply distal collateralization to the popliteal artery The bilateral superficial femoral arteries are ostially proximally and distally occluded Bilateral popliteal arteries are patent and fills via collaterals from the profunda femoris arteries Right leg has single-vessel runoff below the knee from the anterior tibialis artery where the posterior tibialis artery and peroneal arteries are occluded Left leg has single-vessel runoff from the posterior tibialis artery into the left foot. The anterior tibialis artery and peroneal arteries are both occluded. The left femoropopliteal and pop distal AT is thrombosed and occluded IMPRESSION Normal coronary arteries as described above Severely reduced ejection fraction with severe left ventricular dilatation accompanied by severely elevated LVEDP Peripheral artery disease as described above PLAN 1. Medical managemen for the coronary artery disease 2. Standard therapy for systolic heart failure 3. Consideration for [employer] D/P depending on which patient would be candidate for 4. Patient requires additional diuresis in order to decrease LVEDP 5. Medical management for peripheral artery disease 6. Aggressive risk factor modification Electronically signed by : Alex Rudolph MD 06/05/2021 13:40:32 2. End-stage renal disease with dialysis 3 times per week 3. Peripheral arterial disease with reported history of bilateral LE bypass, see results of recent lower extremity runoff above. 4. Severe nonischemic cardiomyopathy, patient has refused AICD implantation in the past. Continue medical therapy A. Echo, 04/2021, EF 20-30% with RVSP of 36 mmHg. 5. Hypertension 6. Hyperlipidemia, on statin therapy 7. History of atrial fibrillation for which he is on amiodarone, metoprolol and Eliquis therapy. A. EKG, 08/2021, baseline artifact makes interpretation difficult but appears to be sinus rhythm or least a regular possible junctional rhythm in the 50s beats per minute range. History of present illness: 70 yr old male brought in by ambulance from [facility] for low oxygen saturation. Saturation reported to be 86% on 6 L. Patient denies shortness of breath. States that he feels tired. Denies any pain. Denies any other complaints at this time. Normally on 2L NC chronically. Staff at [facility] reported that they performed a rapid COVID test and it was positive.He is a hemodialysis patient and is reportedly scheduled for dialysis tomorrow in [facility]. Patient was admitted for pulm consult, seen by cardiology. The above per VALENTINE Calabrese for Dr. Velazquez Patient is not oriented to place or time. He is alert and is hard of hearing When asked what year it is he begins to talk about working on a red Corvette. When asked where he is he begins talking about someone pushing him down. When asking about chest pain he begins talking about fighting. Patient had a cardiac catheterization in May 2021 hermelinda
== END 2021-09-02 15:33 ==
LOC: ER 18:53 → 2ND 22:33
PROVIDERS: Nurse Practitioner Family; Admitting Provider Family Medicine; Emergency Provider Emergency Medicine; PCP Emergency Medicine; Visit Provider Emergency Medicine
DX: U07.1 COVID-19 (principal); Z79.899 Other long term (current) drug therapy; Z79.01 Long term (current) use of anticoagulants; I48.91 Unspecified atrial fibrillation; I12.0 Hypertensive chronic kidney disease with stage 5 chronic kidney disease or end stage renal disease; J12.82 Pneumonia due to coronavirus disease 2019; N18.6 End stage renal disease; Z99.2 Dependence on renal dialysis
CPT/HCPCS: G0378; 71045; 80048; 80053; 82803; 82962; 83605; 83735; 84100; 84145; 84484; 85007; 85025; 85378; 87040; 87077; 87186; 93005; 96365; 97163; 97166; 97530; 99284; C9803; J0692; J1956; U0003; U0005

== ENCOUNTER 2021-09-02 19:52 | Emergency (ER) | payer MEDICARE, SELFPAY ==
[2021-09-02 19:37] VITALS: BP 104/70; PULSE 80; RESP 26; TEMP 39.3; O2SAT 95; BMI 24.4
--- NOTE | 2021-09-02 19:48 | XR_ITS ---
PROCEDURE INFORMATION: Exam: XR Chest Exam date and time: 09/02/2021 7:48 PM Age: 70 years old Clinical indication: Cough; Patient HX: Patient was seen in er yesterday for similar symptoms. TECHNIQUE: Imaging protocol: XR of the chest. Views: 1 view. COMPARISON: CR XR CHEST PORTABLE 09/01/2021 3:30 PM FINDINGS: Lungs: Left lung airspace disease is more conspicuous than on prior study. Pleural spaces: Unremarkable. No pleural effusion. No pneumothorax. Heart/Mediastinum: Mild cardiomegaly. Bones/joints: Unremarkable. IMPRESSION: Left lung airspace disease is more conspicuous than on prior study. This may represent pneumonia in the appropriate clinical setting.
[2021-09-02 19:58] LABS: Basophils % 0.2 % (0.1-2.0); Eosinophils % 0.1 % (0.1-12.0); Hematocrit 31.2 % (42.0-52.0); Hemoglobin 9.5 g/dL (14.1-18.0); Lymphocytes # 0.4 K/mm3 (0.7-4.5); Lymphocytes % 3.6 % (10-50); Mean Corpuscular HGB Conc 30.3 g/dL (31.8-35.4); Mean Corpuscular Volume 95.7 fl (80-94); Mean Platelet Volume 9.1 fl (7.4-10.4); Monocytes # 0.3 K/mm3 (0.1-1.0); Monocytes % 2.4 % (1.7-9.3); Neutrophils # 9.8 K/mm3 (1.8-7.8); Neutrophils % 93.7 % (37.0-80.0); Platelet Count 160 K/mm3 (142-424); Red Blood Count 3.26 M/mm3 (4.60-6.20); Red Cell Distribution Width 20.4 % (11.5-17.5); White Blood Count 10.4 K/mm3 (4.8-10.8)
[2021-09-02 20:00] LABS: MANUAL DIFFERENTIAL MANUAL DIFFERENTIAL (MANUAL DIFF)
[2021-09-02 20:05] LABS: Alanine Aminotransferase 44 U/L (12-78); Albumin Level 2.1 g/dl (3.5-5.0); Alkaline Phosphatase 314 U/L (38-126); Anion Gap 14.6 mEq/L (5-15); Aspartate Amino Transferase 116 U/L (17-59); Bilirubin,Total 0.4 mg/dl (0.2-1.3); Blood Urea Nitrogen 59 mg/dl (9-20); Calcium 7.1 mg/dl (8.4-10.2); Carbon Dioxide 24 mmol/L (22.0-30.0); Chloride 99 mmol/L (98-107); Creatinine Clearance Estimated 14 mL/min (50-200); Estimated Glomerular Filt Rate 10 ml/min (>60); GFR (African American) 12 ML/MIN (>60); Globulin 2.1 g/dL (1.3-3.2); Glucose 51 mg/dl (74-100); Potassium 3.6 mmoL/L (3.5-5.1); Sodium 134 mmol/L (136-145); Total Protein,Serum 4.2 g/dl (6.3-8.2)
[2021-09-02 20:08] LABS: Magnesium 1.8 mg/dl (1.6-2.3)
[2021-09-02 20:10] LABS: D-Dimer 0.71 ug/mL (0.0-0.5)
--- NOTE | 2021-09-02 20:13 | PC.NURSE ---
notified of critical crea of 5.8
--- NOTE | 2021-09-02 20:15 | HMH.EDGENADL ---
ED Disposition Clinical Impression: Hypoglycemia Left lower lobe pneumonia Qualifiers: Pneumonia type: due to unspecified organism Qualified Code(s): J18.9 - Pneumonia, unspecified organism Disposition: Home, Self-Care Condition on Discharge: Fair Instructions: DI for Pneumonia -- Adult, DI for Hypoglycemia Additional Instructions: Continue Levaquin as prescribed. Make sure you check your blood sugar throughout the day and take in glucose containing fluids if you are unable to eat much. Please go to dialysis tomorrow morning as scheduled. Follow-up with Dr. Velazquez and Bety in clinic. Return to the emergency department for any new or worsening symptoms, difficulty breathing or other concerns. Referrals: Deejay Velazquez MD [Primary Care Provider] - Time of Disposition: 22:37 - Critical Care Critical Care Time: No Attestation: On 09/02/21, the high probability of a clinically significant, sudden or life threatening deterioration of the following system(s) required my full and direct attention, intervention and personal management. The time I documented below is in addition to time spent performing reported procedures but includes the following listed in this critical care notation. Medical Decision Making - Medical Records Medical records reviewed: Yes: I reviewed the patient's medical records. - Morgan Inquiry Pt receiving controlled substance: No Vital Signs: 09/02/21 19:37 Temperature 102.7 F H Temperature Source Rectal Pulse Rate [Right] 80 Respiratory Rate 26 H Blood Pressure [Right Arm] 104/70 L Blood Pressure Mean [Right Arm] 81 02 Sat by Pulse Oximetry 95 Oxygen Delivery Method Nasal Cannula Oxygen Flow Rate (LPM) 3 - Lab Data Lab Results 09/02/21 19:45: WBC 10.4, RBC 3.26 L, Hgb 9.5 L, Hct 31.2 L, MCV 95.7 H, MCH 29.0, MCHC 30.3 L, RDW 20.4 H, Plt Count 160, MPV 9.1, Neut % (Auto) 93.7 H, Lymph % (Auto) 3.6 L, [place] % (Auto) 2.4, Eos % (Auto) 0.1, Baso % (Auto) 0.2, Neut # (Auto) 9.8 H, Lymph # (Auto) 0.4 L, [place] # (Auto) 0.3, Eos # (Auto) 0.0, Baso # (Auto) 0.0, Total Counted 100, Neutrophils % (Manual) 94 H, Lymphocytes % (Manual) 5 L, Monocytes % (Manual) 1 L, Platelet Estimate Normal, Anisocytosis 2+, Acanthocytes (Spur) 1+ 09/02/21 19:45: Sodium 134 L, Potassium 3.6, Chloride 99, Carbon Dioxide 24, Anion Gap 14.6, BUN 59 H, Creatinine 5.80 H, Estimated Creat Clear 14, Estimated GFR 10 L*, Est GFR ( Amer) 12 L*, Glucose 51 L, Calcium 7.1 L, Total Bilirubin 0.4, AST 116 H, ALT 44, Alkaline Phosphatase 314 H, Total Protein 4.2 L, Albumin 2.1 L D, Globulin 2.1, Albumin/Globulin Ratio 1.0 L 09/02/21 19:45: D-Dimer 0.71 H 09/02/21 19:45: Magnesium 1.8 09/02/21 19:45: Phosphorus 5.6 H 09/02/21 19:45: Procalcitonin 7.23 H 09/02/21 20:02: VBG pH 7.43 H, VBG pCO2 27.6 L, VBG pO2 101.9 H, VBG HCO3 17.7 L, VBG Total CO2 18.6 L, VBG O2 Saturation 96.9 H, VBG Base Excess -6.6 L 09/02/21 20:20: Lactate 1.4 Result diagrams: 09/02/21 19:45 09/02/21 19:45 Orders (Tests/Meds): ED MEDICATIONS Generic Name Dose Route Start Last Admin Trade Name Freq PRN Reason Stop Dose Admin Dextrose/Sodium Chloride 250 mls @ 100 mls/hr 09/02/21 22:00 09/02/21 22:03 Dextrose 5%-0.45% Nacl Iv Soln IV 10/02/21 21:59 100 mls/hr .Q2H30M NEEL Administration Medical Decision Narrative: In summary this is a 70-year-old male with history of chronic hypoxic respiratory failure and end-stage renal disease requiring dialysis, presenting to the emergency department with worsening shortness of breath and confusion. Patient clinically stable on arrival. His oxygen saturation is 95% on 3 L by nasal cannula. He does not appear to be in any respiratory distress. He is febrile to 102 Fahrenheit. Given Tylenol. Differential diagnoses include worsening Covid pneumonia, electrolyte derangements, hyperkalemia, dehydration, arrhythmia, pulmonary embolism. Will obtain CBC, CMP, chest x-ray, EKG, procalcitonin, la
[2021-09-02 20:18] LABS: Phosphorous 5.6 mg/dl (2.5-4.5)
[2021-09-02 20:26] LABS: Anisocytosis 2+; Lymphocytes % 5 % (10-50); Monocytes % 1 % (2-9); Neutrophils % 94 % (42-76); Platelet Estimate Normal; Total Cells Counted 100
--- NOTE | 2021-09-02 20:26 | ECG_ITS ---
APPROVED REPORT Exam: Resting ECG HR:86 bpm ECG Measurements Heart Rate 86 AXES MN 168 P 67 QRSd 107 QRS 42 QT 324 T -5 QTc 367 Conclusion SINUS RHYTHM NONSPECIFIC ST & T-WAVE ABNORMALITY BORDERLINE ECG UNCONFIRMED REPORT Electronically signed by : Kobe Hess MD 09/03/2021 17:52:20
[2021-09-02 20:27] LABS: Acanthocytes 1+
[2021-09-02 20:35] LABS: Lactic Acid 1.4 mmol/L (0.7-2.1)
[2021-09-02 20:36] LABS: VBG Base Excess -6.6 mmol/L (-2.4-2.3); VBG HCO3 17.7 mmol/L (23-30); VBG Oxygen Saturation 96.9 % (50-70); VBG PCO2 27.6 mmol/L (35-51); VBG PH 7.43 mmol/L (7.31-7.41); VBG PO2 101.9 mmol/L (28-40); VBG Total CO2 18.6 mmol/L (23-27)
[2021-09-02 20:41] LABS: Procalcitonin 7.23 ng/mL (0.0-2.0)
[2021-09-02 22:43] LABS: POC Glucose,Bedside 109 (70-110)
[2021-09-02 22:54] VITALS: BP 112/61; PULSE 81; RESP 22; TEMP 37.6; O2SAT 95
--- NOTE | 2023-01-09 17:22 | P.PN_ITS ---
[facility] Disclaimer: The information contained in this section may have been updated after the patient was seen, as this information can be updated by other users. Medical History (Updated 09/02/21 @ 22:38 by Betsy Howard DO) Abnormal ankle brachial index (ARMANDO) Abnormal electrocardiography Atrial flutter Dyspnea Edema ESRD (end stage renal disease) HTN (hypertension) Sinus tachycardia Ulcer of left ankle Surgical History (Updated 06/13/21 @ 10:19 by Minoo Majano APRN) Hx of aorto-femoral bypass Social History Smoking Status: Former smoker second hand exposure: No alcohol intake: never substance use type: denies use current occupational status: disabled Travel in the last 8 weeks: None household members: other housing: assisted living facility current occupational exposures/hazards: No caffeine: Yes [facility] Anesthesia Checklist Patient Identification Patient Identification: Arm Band Structural Data Admitted From: Home Planned Operative Procedure/s: colonoscopy Consent for Planned Operative Procedure(s) Verified: Yes Verified Documents: Surgical Consent and History and Physical NPO Status Verified Time NPO: 00:00 Additional verifications Patient : No Anesthesia Reactions: No Hx Blood Transfusions: No Blood Transfusion Reaction: No Cephalosporin Allergy: No Previous Colonoscopy: Yes Airway Assessment C-Spine Mobility Assessed: Yes TMJ Mobility Assessed: Yes Dentition: Good Dentition Neurological Assessment Level of Consciousness: Awake, Alert, Appropriate and Follows Commands Hx Seizures: No Numbness or tingling in extremities: No Anesthesia Plan Anesthesia Risk discussed: Yes ASA Class: II Anesthesia Type: MAC
== END 2021-09-02 23:08 | disposition home or self-care (01) ==
PROVIDERS: Emergency Provider Emergency Medicine; PCP Emergency Medicine
DX: J12.82 Pneumonia due to coronavirus disease 2019 (principal); U07.1 COVID-19; E86.0 Dehydration; E11.22 Type 2 diabetes mellitus with diabetic chronic kidney disease; E11.65 Type 2 diabetes mellitus with hyperglycemia; N18.6 End stage renal disease
CPT/HCPCS: 71045; 80053; 82803; 82962; 83605; 83735; 84100; 84145; 85007; 85025; 85378; 93005; 96365